=== PATIENT | female | born 1995 ===

== ENCOUNTER 2020-01-20 09:17 | Inpatient (IN) | payer BC ==
[2020-01-20] MEDS ORDERED: Tranexamic Acid 1,000 MG in Sodium Chloride 0.9% 100 ML IV PRN ×2 (10:52→17:21)
[2020-01-20] MEDS ORDERED: Water For Irrigation,Sterile 1,000 ML Container IRR PRN (10:52)
[2020-01-20] MEDS ORDERED: Misoprostol 200 MCG Tab PO PRN (10:52)
[2020-01-20] MEDS ORDERED: Carboprost Tromethamine 250 MCG/1 ML Amp IM PRN (10:52)
[2020-01-20] MEDS ORDERED: Sodium Chloride 0.9% 10 ML Syringe FLUSH PRN ×3 (10:52→17:21)
[2020-01-20] MEDS ORDERED: Sodium Chloride 0.9% 2.5 ML Syringe FLUSH PRN ×3 (10:52→17:21)
[2020-01-20] MEDS ORDERED: Methylergonovine 0.2 MG/1 ML Amp IM PRN ×2 (10:52→17:21)
[2020-01-20] MEDS ORDERED: Sodium Chloride 0.9% 10 ML SDV IV PRN ×2 (10:52→16:05)
[2020-01-20] MEDS ORDERED: Ondansetron 4 MG/2 ML SDV IVPUSH PRN ×2 (10:52→17:21)
[2020-01-20] MEDS ORDERED: Butorphanol 1 MG/ML SDV IVPUSH PRN (10:52)
[2020-01-20] MEDS ORDERED: Lidocaine 1% 50 ML MDV INJECT PRN (10:52)
[2020-01-20] MEDS ORDERED: Nalbuphine 10 MG/1 ML Vial IVPUSH PRN (10:52)
[2020-01-20] MEDS ORDERED: Oxytocin/0.9 % Sodium Chloride 30 UNIT/500 ML BAG IV SCH ×3 (11:00→16:15)
[2020-01-20 12:00] LABS: BLOOD UREA NITROGEN,BUN 8 mg/dL (7.0-18.0); CARBON DIOXIDE,CO2 23.7 mmol/L (21.0-32.0); CHLORIDE,CL 103 mmol/L (98-107); GLUCOSE RANDOM 78 mg/dL (74-106); POTASSIUM,K 3.1 mmol/L (3.5-5.1); SODIUM,NA 138 mmol/L (136-145)
[2020-01-20] MEDS: Lactated Ringers 1,000 ML IV SCH ×2 (14:26→15:04)
[2020-01-20] MEDS ORDERED: Bupivicaine/fentaNYL/NS 250 ML ONE (14:57)
--- NOTE | 2020-01-20 15:35 | PCM.PREANE ---
Preanesthetic Assessment - Procedure Proposed Procedure: continuous labor epidural - Anesthesia/Transfusion/Family Hx Anesthesia History: No Prior Anesthesia Transfusion History: No Prior Transfusion(s) - Review of Systems General: No Symptoms Pulmonary: No Symptoms Cardiovascular: No Symptoms Gastrointestinal: No Symptoms Neurological: No Symptoms Other: Reports: None - Physical Assessment Height: 5 ft 2.5 in Weight: 79.379 kg ASA Class: 2 Mental Status: Alert & Oriented x3 Airway Class: Mallampati = 1 Dentition: Reports: Normal Dentition ROM/Head Extension: Full Lungs: Clear to Auscultation, Normal Respiratory Effort Cardiovascular: Regular Rate, Regular Rhythm - Lab Values: Laboratory Last Values WBC 20.49 K/uL (4.0-11.0) H 01/20/20 11:14 RBC 3.79 M/uL (4.30-5.90) L 01/20/20 11:14 Hgb 12.2 g/dL (12.0-16.0) 01/20/20 11:14 Hct 35.8 % (36.0-46.0) L 01/20/20 11:14 MCV 94.5 fL (80.0-98.0) 01/20/20 11:14 MCH 32.2 pg (27.0-32.0) H 01/20/20 11:14 MCHC 34.1 g/dL (31.0-37.0) 01/20/20 11:14 RDW Std Deviation 46.8 fl (28.0-62.0) 01/20/20 11:14 RDW Coeff of Prudencio 14 % (11.0-15.0) 01/20/20 11:14 Plt Count 196 K/uL (150-400) 01/20/20 11:14 MPV 11.80 fL (7.40-12.00) 01/20/20 11:14 Nucleated RBC % 0.0 /100WBC 01/20/20 11:14 Nucleated RBCs # 0 K/uL 01/20/20 11:14 Sodium 138 mmol/L (136-145) 01/20/20 11:14 Potassium 3.1 mmol/L (3.5-5.1) L 01/20/20 11:14 Chloride 103 mmol/L (98-107) 01/20/20 11:14 Carbon Dioxide 23.7 mmol/L (21.0-32.0) 01/20/20 11:14 BUN 8 mg/dL (7.0-18.0) 01/20/20 11:14 Creatinine 1.0 mg/dL (0.6-1.0) 01/20/20 11:14 Est Cr Clr Drug Dosing 71.39 mL/min 01/20/20 11:14 Estimated GFR (MDRD) > 60.0 ml/min 01/20/20 11:14 Glucose 78 mg/dL (74-106) 01/20/20 11:14 Calcium 8.5 mg/dL (8.5-10.1) 01/20/20 11:14 Total Bilirubin 0.2 mg/dL (0.2-1.0) 01/20/20 11:14 AST 20 IU/L (15-37) 01/20/20 11:14 ALT 21 IU/L (14-63) 01/20/20 11:14 Alkaline Phosphatase 154 U/L (46-116) H 01/20/20 11:14 Total Protein 6.6 g/dL (6.4-8.2) 01/20/20 11:14 Albumin 2.9 g/dL (3.4-5.0) L 01/20/20 11:14 Globulin 3.7 g/dL (2.6-4.0) 01/20/20 11:14 Albumin/Globulin Ratio 0.8 (0.9-1.6) L 01/20/20 11:14 Urine Color YELLOW 01/20/20 09:15 Urine Appearance CLEAR 01/20/20 09:15 Urine pH 7.0 (5.0-8.0) 01/20/20 09:15 Ur Specific Mineral 1.010 (1.001-1.035) 01/20/20 09:15 Urine Protein NEGATIVE mg/dL (NEGATIVE) 01/20/20 09:15 Urine Glucose (UA) NEGATIVE mg/dL (NEGATIVE) 01/20/20 09:15 Urine Ketones NEGATIVE mg/dL (NEGATIVE) 01/20/20 09:15 Urine Occult Blood NEGATIVE (NEGATIVE) 01/20/20 09:15 Urine Nitrite NEGATIVE (NEGATIVE) 01/20/20 09:15 Urine Bilirubin NEGATIVE (NEGATIVE) 01/20/20 09:15 Urine Urobilinogen 0.2 EU/dL (<2.0) 01/20/20 09:15 Ur Leukocyte Esterase NEGATIVE (NEGATIVE) 01/20/20 09:15 COVID-19 (ROGER) NEGATIVE (NEGATIVE) 01/20/20 11:16 Blood Type A POSITIVE 01/20/20 11:14 Antibody Screen NEGATIVE 01/20/20 11:14 - Allergies Allergies/Adverse Reactions: Allergies Allergy/AdvReac Type Severity Reaction Status Date / Time coffee (Coffea arabica) Allergy Nausea and Verified 01/20/20 09:43 Vomiting oral contraceptive pill Allergy Other Uncoded 01/20/20 09:43 - Acknowledgements Anesthesia Type Planned: Epidural Pt an Appropriate Candidate for the Planned Anesthesia: Yes Alternatives and Risks of Anesthesia Discussed w Pt/Guardian: Yes Pt/Guardian Understands and Agrees with Anesthesia Plan: Yes PreAnesthesia Questionnaire HEENT History: Reports: Impaired Vision Cardiovascular History: Reports: None Respiratory History: Reports: None Gastrointestinal History: Reports: None Genitourinary History: Reports: None 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: Musculoskeletal History: Reports: Other (See Below) Other Musculoskeletal History: Marfan syndrome; fracture of big toe Neurological History: Reports: None Psychiatric History: Reports: Anxiety, Depression Endocrine/Metabolic History: Reports: None Hematologic History: Reports: None Immunologic History: Reports: None Dermatologic History: Reports: None - Infectious Disease History Infectious Disease History: Reports: None - Past Surgical History HEENT Surgical History: Reports: Oral Surgery, Tonsillectomy Musculoskeletal Surgical History: Reports: None - SUBSTANCE USE Tobacco Use Within Last Twelve Months: Cigarettes Recreational Drug Use History: No - CURRENT (IN HOUSE) MEDS Current Meds: Current Medications Butorphanol Tartrate (Stadol) 1 mg IVPUSH Q1H PRN PRN Reason: Pain Last Admin: 01/20/20 11:59 Dose: 1 mg Documented by: Carboprost Tromethamine (Hemabate Ds) 250 mcg IM ASDIRECTED PRN PRN Reason: Post Hemorrhage Lactated Ringer's (Ringers, Lactated) 1,000 mls @ 150 mls/hr IV ASDIRECTED FORTINO Last Admin: 01/20/20 15:04 Dose: 999 mls/hr Documented by: Oxytocin/Sodium Chloride (Oxytocin 30 Unit/500 Ml-Ns) 30 unit in 500 mls @ 999 mls/hr IV TITRATE FORTINO Tranexamic Acid 1,000 mg/ (Sodium Chloride) 110 mls @ 660 mls/hr IV ONETIME PRN PRN Reason: Bleeding Oxytocin/Sodium Chloride (Oxytocin 30 Unit/500 Ml-Ns) 30 unit in 500 mls @ 2 mls/hr IV TITRATE FORTINO; Protocol Lidocaine HCl (Xylocaine 1%) 50 ml INJECT ONETIME PRN PRN Reason: Laceration repair Methylergonovine Maleate (Methergine) 0.2 mg IM ASDIRECTED PRN PRN Reason: Post Hemorrhage Misoprostol (Cytotec) 200 mcg PO ONETIME PRN PRN Reason: Post Hemorrhage Nalbuphine HCl (Nubain) 10 mg IVPUSH Q1H PRN PRN Reason: Pain (severe 7-10) Ondansetron HCl (Zofran) 4 mg IVPUSH Q6H PRN PRN Reason: Nausea/Vomiting Last Admin: 01/20/20 11:55 Dose: 4 mg Documented by: Sodium Chloride (Saline Flush) 10 ml FLUSH ASDIRECTED PRN PRN Reason: Keep Vein Open Sodium Chloride (Saline Flush) 2.5 ml FLUSH ASDIRECTED PRN PRN Reason: Keep Vein Open Sodium Chloride (Normal Saline) 10 ml IV ASDIRECTED PRN PRN Reason: IV Use Sterile Water (Sterile Water For Irrigation) 1,000 ml IRR ASDIRECTED PRN PRN Reason: delivery Discontinued Medications Fentanyl/Bupivacaine HCl (Fentanyl/Bupivacaine/Ns 2 Mcg-0.125% 250 Ml) Confirm Administered Dose 250 mls @ as directed .ROUTE .[facility] ONE Stop: 01/20/20 14:58
[2020-01-20] MEDS ORDERED: Morphine PF 10 MG/10 ML SDV ONE (16:05)
[2020-01-20] MEDS ORDERED: ceFAZolin 2 GM in Premix Bag 1 BAG IV ONE (16:05)
[2020-01-20] MEDS ORDERED: Ondansetron 4 MG/2 ML SDV ONE (16:13)
[2020-01-20] MEDS ORDERED: Oxytocin 10 Units/1 ML SDV ONE (16:13)
[2020-01-20] MEDS ORDERED: Lactated Ringers 1,000 ML IV SCH ×2 (16:15→17:30)
[2020-01-20] MEDS ORDERED: fentaNYL 100 MCG/2 ML SDV IVPUSH PRN (16:48)
[2020-01-20] MEDS ORDERED: Acetaminophen/oxyCODONE 325-5 MG Tab PO PRN (16:48)
[2020-01-20] MEDS ORDERED: Octyl 2-Cyanoacrylate 1 Tube ONE (17:19)
[2020-01-20] MEDS ORDERED: Oxytocin 10 Units/1 ML SDV IM PRN (17:21)
[2020-01-20] MEDS ORDERED: Lanolin 100% Cream 7 GM Tube TOP PRN (17:21)
[2020-01-20] MEDS ORDERED: Bisacodyl 10 MG Supp RECTAL PRN (17:21)
[2020-01-20] MEDS ORDERED: Misoprostol 200 MCG Tab RECTAL PRN (17:21)
[2020-01-20] MEDS ORDERED: diphenhydrAMINE 50 MG/ML SDV IVPUSH PRN (17:21)
[2020-01-20] MEDS ORDERED: Ibuprofen 800 MG Tab PO PRN (17:21)
[2020-01-20] MEDS ORDERED: Oxytocin/Lactated Ringers 30 UNIT/500 ML BAG IV SCH (17:30)
--- NOTE | 2020-01-20 17:32 | PCM.OPNOTE ---
- General Post-Op/Procedure Note Date of Surgery/Procedure: 01/20/20 Operative Procedure(s): Primary low-transverse section Findings: Live male infant in radha breech presentation, Apgars 8/9, weight 2700g. Normal-appearing uterus, ovaries, fallopian tubes. Pre Op Diagnosis: 24yo @ 39w2d. Labor. malpresentation. Gestational hypertension Post-Op Diagnosis: 24yo @ 39w2d. Labor. malpresentation. Gestational hypertension Anesthesia Technique: Epidural Primary Surgeon: Kimber Lazo Anesthesia Provider: Daniel Christensen [employer] Impregnating Range Tender: Igor Delcid Pathology: Placenta to pathology Cord blood Fluid Replacement, Intraop: 900 Output, Urine Amount: 500 EBL in mLs: 150 Complications: None Condition: Good Free Text/Narrative:: Ancef prophylaxis
[2020-01-20] MEDS: Ketorolac 30 MG/ML SDV IVPUSH SCH (18:09)
--- NOTE | 2020-01-20 18:13 | PCM.POSTAN ---
POST ANESTHESIA ASSESSMENT - MENTAL STATUS Mental Status: Alert, Oriented - VITAL SIGNS Vital Signs: HR-63 Bp-110/67 SPo2-98% T- 98.1 RR-20 - RESPIRATORY Respiratory Status: Respiratory Rate WNL, Airway Patent, O2 Saturation Stable - CARDIOVASCULAR CV Status: Pulse Rate WNL, Blood Pressure Stable - GASTROINTESTINAL GI Status: No Symptoms - PAIN Pain Score: 1 - POST OP HYDRATION Hydration Status: Adequate & Stable - OBSERVATIONS Free Text/Narrative:: epidural block slowly receding down to T-8
--- NOTE | 2020-01-20 19:03 | OR ---
SURGEON: Kimber Lazo MD DATE OF PROCEDURE: 01/20/2020 PREOPERATIVE DIAGNOSES: 1. A 24-year-old, G1, P0, at 39 weeks and 2 days' gestation. 2. Labor. 3. malpresentation. 4. Gestational hypertension. POSTOPERATIVE DIAGNOSES: 1. A 24-year-old, G1, P0, at 39 weeks and 2 days' gestation. 2. Labor. 3. malpresentation. 4. Gestational hypertension. PROCEDURE: Primary low transverse section via Pfannenstiel. PRIMARY SURGEON: Kimber Lazo MD MANAGER THERAPY: Garrison Carrasco, medical student. ANESTHESIA: Epidural by Dr. Daniel Christensen. FINDINGS: Live male in radha breech presentation. score of 8 and 9 at one and five minutes respectively. Weight 2700 g. Normal-appearing uterus, ovaries, and tubes. ANTIBIOTIC PROPHYLAXIS: Ancef 2 g. IV FLUIDS: 900 mL of LR. ESTIMATED BLOOD LOSS: 500 mL. URINE OUTPUT: 150 mL. INDICATIONS: This is a 24-year-old, G1, P0, who presented at 39 weeks and 2 days' gestation complaining of contractions. Upon presentation, her cervix was found to be 3 cm dilated. She was admitted in latent labor with plan for augmentation as necessary. She spontaneously progressed to 4 to 5 cm dilated. She received an epidural for pain control. At this time, she underwent artificial rupture of membranes with minimal fluid noted. On this exam, the presenting part palpated abnormally and ultrasound was obtained to confirm breech presentation. Decision was then made to proceed with primary section for malpresentation and labor. The risks and benefits of this procedure were discussed with the patient. She agreed to proceed. DESCRIPTION OF PROCEDURE: The patient was taken to the operating room where her epidural was bolused. She was prepared and draped in the normal sterile fashion. A Pfannenstiel skin incision was made with a scalpel and carried through to the underlying layer of fascia with the Bovie. The fascia was incised in the midline and the incision extended laterally with curved Bautista scissors. The superior aspect of the fascial incision was grasped with Aziza clamps, elevated, and underlying rectus muscles dissected off bluntly and with the Bovie. In a similar fashion, the inferior aspect of the fascial incision was grasped with Aziza clamps, elevated, and underlying rectus muscles dissected off bluntly and with curved Bautista scissors. The peritoneum was identified in the midline and entered bluntly with a digit. The peritoneal incision was extended using manual traction. A large Jaime retractor was placed. Bladder flap was created in the usual manner. A low transverse hysterotomy was created with the scalpel. The hysterotomy was extended using manual traction. The 's buttocks were noted at the incision and was brought through the hysterotomy. The 's buttocks were wrapped with a moist blue towel and continued traction on the hip bones was performed until delivery of the bilateral legs. The was rotated and the left arm swept with a finger and delivered atraumatically. The infant was rotated 180 degrees and the right arm swept with a finger and delivered atraumatically. The head was flexed, and with light fundal pressure, the head was delivered. After approximately 30 seconds, the cord was clamped and cut. The was handed off to the awaiting emergency management director, nurse, and respiratory therapist. Cord blood was obtained. The placenta then delivered with uterine massage and gentle traction on the cord. The uterus was cleared of all clots and debris. The uterine incision was repaired with a running lock stitch of 0 Vicryl suture. A second stitch of the same suture was used to obtain hemostasis. The uterus was returned to the abdomen. The Jaime retractor was removed. The gutters were cleared of all clots. The hysterotomy was inspected and noted to be hemostatic. The fascia was closed with a running stitch of 0 Vicryl suture. The skin was closed with 4-0 Monocryl in subcuticular manner. All sponge, lap, needle counts were correct x2. The patient and infant tolerated the delivery well. [id number] / ALEJANDRO /[id number] CECE
[2020-01-20] MEDS: Nalbuphine 10 MG/1 ML Vial IVPUSH PRN (20:13)
[2020-01-21] MEDS: Ketorolac 30 MG/ML SDV IVPUSH SCH ×4 (00:09→18:26)
[2020-01-21] MEDS: Nalbuphine 10 MG/1 ML Vial IVPUSH PRN (02:27)
--- NOTE | 2020-01-21 07:17 | PCM48HPAN ---
Post Anesthesia Note - EVALUATION WITHIN 48HRS OF ANESTHETIC Vital Signs in Normal Range: Yes Patient Participated in Evaluation: Yes Respiratory Function Stable: Yes Airway Patent: Yes Cardiovascular Function Stable: Yes Hydration Status Stable: Yes Pain Control Satisfactory: Yes Nausea and Vomiting Control Satisfactory: Yes Mental Status Recovered: Yes Vital Signs: Last Vital Signs Temp 36.1 C 01/21/20 04:00 Pulse 72 01/21/20 04:00 Resp 16 01/21/20 06:00 BP 116/71 01/21/20 04:00 Pulse Ox 97 01/21/20 06:00
--- NOTE | 2020-01-21 08:09 | PCM.PNPP ---
- General Info Date of Service: 01/21/20 Subjective Update: Voiding spontaneously. Denies dizziness with ambulation. Functional Status: Reports: Pain Controlled, Tolerating Diet, Ambulating, Urinating - Review of Systems General: Reports: No Symptoms HEENT: Reports: No Symptoms Pulmonary: Reports: No Symptoms Cardiovascular: Reports: No Symptoms Gastrointestinal: Reports: No Symptoms Genitourinary: Reports: No Symptoms Musculoskeletal: Reports: No Symptoms Skin: Reports: No Symptoms Neurological: Reports: No Symptoms Psychiatric: Reports: No Symptoms - Patient Data Vital Signs - Most Recent: Last Vital Signs Temp 36.3 C 01/21/20 07:00 Pulse 78 01/21/20 07:00 Resp 20 01/21/20 07:00 BP 112/75 01/21/20 07:00 Pulse Ox 97 01/21/20 07:00 Weight - Most Recent: 79.379 kg I&O - Last 24 Hours: Intake & Output 01/20/20 01/21/20 01/21/20 22:59 06:59 14:59 Intake Total 900 Output Total 500 700 Balance 400 -700 Lab Results - Last 24 Hours: Laboratory Results - last 24 hr 01/20/20 01/20/20 01/20/20 Range/Units 09:15 11:14 11:14 WBC 20.49 H (4.0-11.0) K/uL RBC 3.79 L (4.30-5.90) M/uL Hgb 12.2 (12.0-16.0) g/dL Hct 35.8 L (36.0-46.0) % MCV 94.5 (80.0-98.0) fL MCH 32.2 H (27.0-32.0) pg MCHC 34.1 (31.0-37.0) g/dL RDW Std Deviation 46.8 (28.0-62.0) fl RDW Coeff of Prudencio 14 (11.0-15.0) % Plt Count 196 (150-400) K/uL MPV 11.80 (7.40-12.00) fL Nucleated RBC % 0.0 /100WBC Nucleated RBCs # 0 K/uL Sodium 138 (136-145) mmol/L Potassium 3.1 L (3.5-5.1) mmol/L Chloride 103 (98-107) mmol/L Carbon Dioxide 23.7 (21.0-32.0) mmol/L BUN 8 (7.0-18.0) mg/dL Creatinine 1.0 (0.6-1.0) mg/dL Est Cr Clr Drug Dosing 71.39 mL/min Estimated GFR (MDRD) > 60.0 ml/min Glucose 78 (74-106) mg/dL Calcium 8.5 (8.5-10.1) mg/dL Total Bilirubin 0.2 (0.2-1.0) mg/dL AST 20 (15-37) IU/L ALT 21 (14-63) IU/L Alkaline Phosphatase 154 H (46-116) U/L Total Protein 6.6 (6.4-8.2) g/dL Albumin 2.9 L (3.4-5.0) g/dL Globulin 3.7 (2.6-4.0) g/dL Albumin/Globulin Ratio 0.8 L (0.9-1.6) Urine Color YELLOW Urine Appearance CLEAR Urine pH 7.0 (5.0-8.0) Ur Specific Her[place] 1.010 (1.001-1.035) Urine Protein NEGATIVE (NEGATIVE) mg/dL Urine Glucose (UA) NEGATIVE (NEGATIVE) mg/dL Urine Ketones NEGATIVE (NEGATIVE) mg/dL Urine Occult Blood NEGATIVE (NEGATIVE) Urine Nitrite NEGATIVE (NEGATIVE) Urine Bilirubin NEGATIVE (NEGATIVE) Urine Urobilinogen 0.2 (<2.0) EU/dL Ur Leukocyte Esterase NEGATIVE (NEGATIVE) COVID-19 ([facility]) (NEGATIVE) Blood Type Antibody Screen 01/20/20 01/20/20 01/21/20 Range/Units 11:14 11:16 05:35 WBC (4.0-11.0) K/uL RBC (4.30-5.90) M/uL Hgb 9.9 L (12.0-16.0) g/dL Hct 29.4 L (36.0-46.0) % MCV (80.0-98.0) fL MCH (27.0-32.0) pg MCHC (31.0-37.0) g/dL RDW Std Deviation (28.0-62.0) fl RDW Coeff of Prudencio (11.0-15.0) % Plt Count (150-400) K/uL MPV (7.40-12.00) fL Nucleated RBC % /100WBC Nucleated RBCs # K/uL Sodium (136-145) mmol/L Potassium (3.5-5.1) mmol/L Chloride (98-107) mmol/L Carbon Dioxide (21.0-32.0) mmol/L BUN (7.0-18.0) mg/dL Creatinine (0.6-1.0) mg/dL Est Cr Clr Drug Dosing mL/min Estimated GFR (MDRD) ml/min Glucose (74-106) mg/dL Calcium (8.5-10.1) mg/dL Total Bilirubin (0.2-1.0) mg/dL AST (15-37) IU/L ALT (14-63) IU/L Alkaline Phosphatase (46-116) U/L Total Protein (6.4-8.2) g/dL Albumin (3.4-5.0) g/dL Globulin (2.6-4.0) g/dL Albumin/Globulin Ratio (0.9-1.6) Urine Color Urine Appearance Urine pH (5.0-8.0) Ur Specific Herlong (1.001-1.035) Urine Protein (NEGATIVE) mg/dL Urine Glucose (UA) (NEGATIVE) mg/dL Urine Ketones (NEGATIVE) mg/dL Urine Occult Blood (NEGATIVE) Urine Nitrite (NEGATIVE) Urine Bilirubin (NEGATIVE) Urine Urobilinogen (<2.0) EU/dL Ur Leukocyte Esterase (NEGATIVE) COVID-19 ([facility]) NEGATIVE (NEGATIVE) Blood Type A POSITIVE Antibody Screen NEGATIVE Med Orders - Current: Current Medications Bisacodyl (Dulcolax) 10 mg RECTAL ONETIME PRN PRN Reason: Constipation Butorphanol Tartrate (Stadol) 1 mg IVPUSH Q1H PRN PRN Reason: Pain Last Admin: 01/20/20 11:59 Dose: 1 mg Documented by: Carboprost Tromethamine (Hemabate Ds) 250 mcg IM ASDIRECTED PRN PRN Reason: Post Hemorrhage Diphenhydramine HCl (Benadryl) 25 mg IVPUSH Q6H PRN PRN Reason: Itching or Nausea Docusate Sodium (Colace) 100 mg PO BID [facility]TINO Emollient Ointment (Lansinoh Hpa) 0 gm TOP ASDIRECTED PRN PRN Reason: Sore Nipples Fentanyl (Sublimaze) 50 mcg IVPUSH Q5M PRN PRN Reason: Pain (severe 7-10) Stop: 01/21/20 16:49 Lactated Ringer's (Ringers, Lactated) 1,000 mls @ 150 mls/hr IV ASDIRECTED [facility] Last Admin: 01/20/20 15:04 Dose: 999 mls/hr Documented by: Oxytocin/Sodium Chloride (Oxytocin 30 Unit/500 Ml-Ns) 30 unit in 500 mls @ 999 mls/hr IV TITRATE [facility] Tranexamic Acid 1,000 mg/ (Sodium Chloride) 110 mls @ 660 mls/hr IV ONETIME PRN PRN Reason: Bleeding Oxytocin/Sodium Chloride (Oxytocin 30 Unit/500 Ml-Ns) 30 unit in 500 mls @ 2 mls/hr IV TITRATE [facility]; Protocol Lactated Ringer's (Ringers, Lactated) 1,000 mls @ 500 mls/hr IV BOLUS FORTINO Oxytocin/Sodium Chloride (Oxytocin 30 Unit/500 Ml-Ns) 30 unit in 500 mls @ 250 mls/hr IV TITRATE [facility] Lactated Ringer's (Ringers, Lactated) 1,000 mls @ 125 mls/hr IV ASDIRECTED [facility] Last Admin: 01/20/20 19:30 Dose: 125 mls/hr Documented by: Oxytocin/Lactated Ringer's (Pitocin In Lr 30 Units/500 Ml) 30 unit in 500 mls @ 999 mls/hr IV TITRATE [facility]; Protocol Tranexamic Acid 1,000 mg/ (Sodium Chloride) 110 mls @ 660 mls/hr IV ONETIME PRN PRN Reason: Bleeding Ibuprofen (Motrin) 800 mg PO Q8H PRN PRN Reason: mild pain or fever Ketorolac Tromethamine (Toradol) 30 mg IVPUSH Q6H [facility] Stop: 01/21/20 17:31 Last Admin: 01/21/20 06:21 Dose: 30 mg Documented by: Lidocaine HCl (Xylocaine 1%) 50 ml INJECT ONETIME PRN PRN Reason: Laceration repair Methylergonovine Maleate (Methergine) 0.2 mg IM ASDIRECTED PRN PRN Reason: Post Hemorrhage Methylergonovine Maleate (Methergine) 0.2 mg IM ONETIME PRN PRN Reason: Excessive Vaginal Bleeding Misoprostol (Cytotec) 200 mcg PO ONETIME PRN PRN Reason: Post Hemorrhage Misoprostol (Cytotec) 1,000 mcg RECTAL ONETIME PRN PRN Reason: excessive bleeding Nalbuphine HCl (Nubain) 10 mg IVPUSH Q1H PRN PRN Reason: Pain (severe 7-10) Nalbuphine HCl (Nubain) 2.5 mg IVPUSH Q3H PRN PRN Reason: Pruritis Stop: 01/21/20 16:49 Last Admin: 01/21/20 02:27 Dose: 2.5 mg Documented by: Ondansetron HCl (Zofran) 4 mg IVPUSH Q6H PRN PRN Reason: Nausea/Vomiting Last Admin: 01/20/20 11:55 Dose: 4 mg Documented by: Ondansetron HCl (Zofran) 4 mg IVPUSH Q4H PRN PRN Reason: Nausea/Vomiting Oxycodone/Acetaminophen (Percocet 325-5 Mg) 1 tab PO ONETIME PRN PRN Reason: Pain (moderate 4-6) Oxycodone/Acetaminophen (Percocet 325-5 Mg) 1 tab PO Q4H PRN PRN Reason: Pain (moderate 4-6) Oxycodone/Acetaminophen (Percocet 325-5 Mg) 2 tab PO Q4H PRN PRN Reason: Pain (moderate 4-6) Oxytocin (Pitocin) 10 unit IM ASDIRECTED PRN PRN Reason: Excessive Vaginal Bleeding Sodium Chloride (Saline Flush) 10 ml FLUSH ASDIRECTED PRN PRN Reason: Keep Vein Open Sodium Chloride (Saline Flush) 2.5 ml FLUSH ASDIRECTED PRN PRN Reason: Keep Vein Open Sodium Chloride (Normal Saline) 10 ml IV ASDIRECTED PRN PRN Reason: IV Use Sodium Chloride (Saline Flush) 10 ml FLUSH ASDIRECTED PRN PRN Reason: Keep Vein Open Sodium Chloride (Saline Flush) 2.5 ml FLUSH ASDIRECTED PRN PRN Reason: Keep Vein Open Sodium Chloride (Normal Saline) 10 ml IV ASDIRECTED PRN PRN Reason: IV Use Sodium Chloride (Saline Flush) 10 ml FLUSH ASDIRECTED PRN PRN Reason: Keep Vein Open Sodium Chloride (Saline Flush) 2.5 ml FLUSH ASDIRECTED PRN PRN Reason: Keep Vein Open Sterile Water (Sterile Water For Irrigation) 1,000 ml IRR ASDIRECTED PRN PRN Reason: delivery Discontinued Medications Fentanyl/Bupivacaine HCl (Fentanyl/Bupivacaine/Ns 2 Mcg-0.125% 250 Ml) Confirm Administered Dose 250 mls @ as directed .ROUTE .STK-MED ONE Stop: 01/20/20 14:58 Last Admin: 01/20/20 18:36 Dose: Not Given Documented by: Cefazolin Sodium/Dextrose 2 gm (/ Premix) 50 mls @ 100 mls/hr IV ONETIME ONE Stop: 01/20/20 16:34 Last Admin: 01/20/20 18:36 Dose: Not Given Documented by: Morphine Sulfate (Duramorph Pf) Confirm Administered Dose 10 mg .ROUTE .STK-MED ONE Stop: 01/20/20 16:06 Octyl Cyanoacrylate (Dermabond Advance) Confirm Administered Dose 1 applic .ROUTE .STK-MED ONE Stop: 01/20/20 17:20 Ondansetron HCl (Zofran) Confirm Administered Dose 4 mg .ROUTE .STK-MED ONE Stop: 01/20/20 16:14 Oxytocin (Pitocin) Confirm Administered Dose 20 unit .ROUTE .STK-MED ONE Stop: 01/20/20 16:14 - Infant Interaction Infant Disposition, : [place] in Room with Family Infant Feeding: Attempted ; Nursed Fair/Poor Support Person: - Recovery Exam Fundal Tone: Firm Fundal Level: 1 Fingerbreadths Below Umbilicus Fundal Placement: Midline Lochia Amount: Scant Lochia Color: Rubra/Red Bladder Status: Voiding Urinary Elimination: Voided - Exam General: Alert, Oriented Neck: Supple Lungs: Clear to Auscultation, Normal Respiratory Effort Cardiovascular: Regular Rate, Regular Rhythm GI/Abdominal Exam: Soft, No Distention, Tender (appropriately tender to palpation) Extremities: No Pedal Edema Skin: Warm, Dry, Intact Wound/Incisions: Dressing Dry and Intact Neurological: No New Focal Deficit Psy/Mental Status: Alert, Normal Affect, Normal Mood - Problem List & Annotations (1) S/P primary low transverse SNOMED Code(s): 576302532, [id number], [id number], [id number], [id number] Code(s): Z98.891 - HISTORY OF UTERINE SCAR FROM PREVIOUS SURGERY Status: Acute Current Visit: Yes - Problem List Review Problem List Initiated/Reviewed/Updated: Yes - My Orders Last 24 Hours: My Active Orders 01/20/20 09:44 Resuscitation Status Routine 01/20/20 10:52 Butorphanol [Stadol] 1 mg IVPUSH Q1H PRN Carboprost Tromethamine [Hemabate DS] 250 mcg IM ASDIRECTED PRN Lidocaine 1% [Xylocaine 1%] 50 ml INJECT ONETIME PRN Methylergonovine [Methergine] 0.2 mg IM ASDIRECTED PRN Nalbuphine [Nubain] 10 mg IVPUSH Q1H PRN Ondansetron [Zofran] 4 mg IVPUSH Q6H PRN Sodium Chloride 0.9% [Normal Saline] 10 ml IV ASDIRECTED PRN Sodium Chloride 0.9% [Saline Flush] 10 ml FLUSH ASDIRECTED PRN Sodium Chloride 0.9% [Saline Flush] 2.5 ml FLUSH ASDIRECTED PRN Tranexamic Acid [Cyklokapron] 1,000 mg Sodium Chloride 0.9% [Normal Saline] 100 ml IV ONETIME Water For Irrigation,Sterile [Sterile Water for Irrigation] 1,000 ml IRR ASDIRECTED PRN miSOPROStoL [Cytotec] 200 mcg PO ONETIME PRN Scalp Electrode [WOMSER] Per Unit Routine Peripheral IV Insertion Adult [OM.PC] Routine 01/20/20 11:00 Lactated Ringers [Ringers, Lactated] 1,000 ml IV ASDIRECTED Oxytocin/0.9 % Sodium Chloride [Oxytocin 30 Unit/500 ML-NS] 30 unit in 500 ml IV TITRATE 01/20/20 11:14 RPR (SYPHILIS SERO) W/ RFLX [REF] Routine 01/20/20 13:30 Oxytocin/0.9 % Sodium Chloride [Oxytocin 30 Unit/500 ML-NS] 30 unit in 500 ml IV TITRATE 01/20/20 Dinner Regular Diet [DIET] 01/20/20 16:05 Sodium Chloride 0.9% [Normal Saline] 10 ml IV ASDIRECTED PRN Sodium Chloride 0.9% [Saline Flush] 10 ml FLUSH ASDIRECTED PRN Sodium Chloride 0.9% [Saline Flush] 2.5 ml FLUSH ASDIRECTED PRN 01/20/20 16:08 Patient Status [ADT] Routine Verify Patient Consent Obtain [RC] ASDIRECTED Peripheral IV Insertion Adult [OM.PC] Routine Schedule Procedure [COMM] Per Unit Routine 01/20/20 16:09 Notify Provider Vital Signs [RC] PRN 01/20/20 16:15 Lactated Ringers [Ringers, Lactated] 1,000 ml IV BOLUS Oxytocin/0.9 % Sodium Chloride [Oxytocin 30 Unit/500 ML-NS] 30 unit in 500 ml IV TITRATE 01/20/20 17:21 Patient Status [ADT] Routine Ambulate [RC] PER UNIT ROUTINE Communication Order [RC] PER UNIT ROUTINE Communication Order [RC] Per Unit Routine Intake and Output [RC] Q8H May Shower [RC] ASDIRECTED Notify Provider Intake and Out [RC] ASDIRECTED Notify Provider Vital Signs [RC] ASDIRECTED RT Incentive Spirometry [RC] Q2HWA Urinary Catheter Removal [RC] PER UNIT ROUTINE Vital Signs [RC] PER UNIT ROUTINE Acetaminophen/oxyCODONE [Percocet 325-5 MG] 1 tab PO Q4H PRN Acetaminophen/oxyCODONE [Percocet 325-5 MG] 2 tab PO Q4H PRN Ibuprofen [Motrin] 800 mg PO Q8H PRN Lanolin [Lansinoh HPA] See Dose Instructions TOP ASDIRECTED PRN Methylergonovine [Methergine] 0.2 mg IM ONETIME PRN Ondansetron [Zofran] 4 mg IVPUSH Q4H PRN Oxytocin [Pitocin] 10 unit IM ASDIRECTED PRN Sodium Chloride 0.9% [Saline Flush] 10 ml FLUSH ASDIRECTED PRN Sodium Chloride 0.9% [Saline Flush] 2.5 ml FLUSH ASDIRECTED PRN Tranexamic Acid [Cyklokapron] 1,000 mg Sodium Chloride 0.9% [Normal Saline] 100 ml IV ONETIME bisacodyL [Dulcolax] 10 mg RECTAL ONETIME PRN diphenhydrAMINE [Benadryl] 25 mg IVPUSH Q6H PRN miSOPROStoL [Cytotec] 1,000 mcg RECTAL ONETIME PRN Abdominal Binder [OM.PC] Routine Assess Lochia [WOMSER] Per Unit Routine Assess Uterine Involution [WOMSER] Per Unit Routine Breast Pump [WOMSER] Per Unit Routine DVT/VTE Prophylaxis Reflex [OM.PC] Routine Heat Therapy [OM.PC] Routine Ice Therapy [OM.PC] Routine Saline Lock Insert [OM.PC] Routine Sequential Compression Device [OM.PC] Per Unit Routine 01/20/20 17:22 Antiembolic Devices [RC] PER UNIT ROUTINE Communication Order [RC] PER UNIT ROUTINE Peripheral IV Discontinue [OM.PC] Routine 01/20/20 17:24 Cooling Warming Measures [RC] ASDIRECTED 01/20/20 17:25 VTE/DVT Education [RC] PER UNIT ROUTINE 01/20/20 17:30 Ketorolac [Toradol] 30 mg IVPUSH Q6H Lactated Ringers [Ringers, Lactated] 1,000 ml IV ASDIRECTED Oxytocin/Lactated Ringers [Pitocin in LR 30 Units/500 ML] 30 unit in 500 ml IV TITRATE 01/20/20 21:00 Docusate Sodium [Colace] 100 mg PO BID 01/21/20 08:06 diphenhydrAMINE [Benadryl] 25 mg PO Q6H PRN - Assessment Assessment:: 24yo s/p 1LTCD at 39w2d for labor and malpresentation, POD#1 - Plan Plan:: 1. Routine postoperative care. 2. GHTN - BP normal since delivery, continue to monitor. 3. Dispo - Plan for discharge home on POD#2.
[2020-01-21] MEDS: Docusate Sodium 100 MG Cap PO SCH ×2 (09:53→21:50)
[2020-01-21] MEDS: diphenhydrAMINE 25 MG Cap PO PRN ×2 (10:26→21:50)
[2020-01-21] MEDS: Acetaminophen/oxyCODONE 325-5 MG Tab PO PRN (19:18)
[2020-01-22] MEDS: Acetaminophen/oxyCODONE 325-5 MG Tab PO PRN ×3 (03:56→12:10)
[2020-01-22] MEDS: Docusate Sodium 100 MG Cap PO SCH ×2 (08:28→08:44)
--- NOTE | 2020-01-22 09:43 | PCM.PNPP ---
- General Info Date of Service: 01/22/20 Functional Status: Reports: Pain Controlled, Tolerating Diet, Ambulating, Urinating - Review of Systems General: Reports: No Symptoms HEENT: Reports: No Symptoms Pulmonary: Reports: No Symptoms Cardiovascular: Reports: No Symptoms Gastrointestinal: Reports: No Symptoms Genitourinary: Reports: No Symptoms Musculoskeletal: Reports: No Symptoms Skin: Reports: No Symptoms Neurological: Reports: No Symptoms Psychiatric: Reports: No Symptoms - Patient Data Vital Signs - Most Recent: Last Vital Signs Temp 36.3 C 01/22/20 07:40 Pulse 64 01/22/20 07:40 Resp 16 01/22/20 07:40 BP 124/81 01/22/20 07:40 Pulse Ox 99 01/22/20 07:40 Weight - Most Recent: 175 lb Lab Results - Last 24 Hours: Laboratory Results - last 24 hr 01/20/20 Range/Units 11:14 RPR Non-Reac (Non-Reac) Med Orders - Current: Current Medications Bisacodyl (Dulcolax) 10 mg RECTAL ONETIME PRN PRN Reason: Constipation Butorphanol Tartrate (Stadol) 1 mg IVPUSH Q1H PRN PRN Reason: Pain Last Admin: 01/20/20 11:59 Dose: 1 mg Documented by: Carboprost Tromethamine (Hemabate Ds) 250 mcg IM ASDIRECTED PRN PRN Reason: Post Hemorrhage Diphenhydramine HCl (Benadryl) 25 mg IVPUSH Q6H PRN PRN Reason: Itching or Nausea Diphenhydramine HCl (Benadryl) 25 mg PO Q6H PRN PRN Reason: Sleep Last Admin: 01/21/20 21:50 Dose: 25 mg Documented by: Docusate Sodium (Colace) 100 mg PO BID FORTINO Last Admin: 01/22/20 08:44 Dose: 100 mg Documented by: Emollient Ointment (Lansinoh Hpa) 0 gm TOP ASDIRECTED PRN PRN Reason: Sore Nipples Lactated Ringer's (Ringers, Lactated) 1,000 mls @ 150 mls/hr IV ASDIRECTED [facility] Last Admin: 01/20/20 15:04 Dose: 999 mls/hr Documented by: Oxytocin/Sodium Chloride (Oxytocin 30 Unit/500 Ml-Ns) 30 unit in 500 mls @ 999 mls/hr IV TITRATE [facility] Tranexamic Acid 1,000 mg/ (Sodium Chloride) 110 mls @ 660 mls/hr IV ONETIME PRN PRN Reason: Bleeding Oxytocin/Sodium Chloride (Oxytocin 30 Unit/500 Ml-Ns) 30 unit in 500 mls @ 2 mls/hr IV TITRATE [facility]; Protocol Lactated Ringer's (Ringers, Lactated) 1,000 mls @ 500 mls/hr IV BOLUS FORTINO Oxytocin/Sodium Chloride (Oxytocin 30 Unit/500 Ml-Ns) 30 unit in 500 mls @ 250 mls/hr IV TITRATE [facility] Lactated Ringer's (Ringers, Lactated) 1,000 mls @ 125 mls/hr IV ASDIRECTED [facility] Last Admin: 01/20/20 19:30 Dose: 125 mls/hr Documented by: Oxytocin/Lactated Ringer's (Pitocin In Lr 30 Units/500 Ml) 30 unit in 500 mls @ 999 mls/hr IV TITRATE [facility]; Protocol Tranexamic Acid 1,000 mg/ (Sodium Chloride) 110 mls @ 660 mls/hr IV ONETIME PRN PRN Reason: Bleeding Ibuprofen (Motrin) 800 mg PO Q8H PRN PRN Reason: mild pain or fever Last Admin: 01/22/20 08:44 Dose: 800 mg Documented by: Lidocaine HCl (Xylocaine 1%) 50 ml INJECT ONETIME PRN PRN Reason: Laceration repair Methylergonovine Maleate (Methergine) 0.2 mg IM ASDIRECTED PRN PRN Reason: Post Hemorrhage Methylergonovine Maleate (Methergine) 0.2 mg IM ONETIME PRN PRN Reason: Excessive Vaginal Bleeding Misoprostol (Cytotec) 200 mcg PO ONETIME PRN PRN Reason: Post Hemorrhage Misoprostol (Cytotec) 1,000 mcg RECTAL ONETIME PRN PRN Reason: excessive bleeding Nalbuphine HCl (Nubain) 10 mg IVPUSH Q1H PRN PRN Reason: Pain (severe 7-10) Ondansetron HCl (Zofran) 4 mg IVPUSH Q6H PRN PRN Reason: Nausea/Vomiting Last Admin: 01/20/20 11:55 Dose: 4 mg Documented by: Ondansetron HCl (Zofran) 4 mg IVPUSH Q4H PRN PRN Reason: Nausea/Vomiting Oxycodone/Acetaminophen (Percocet 325-5 Mg) 1 tab PO ONETIME PRN PRN Reason: Pain (moderate 4-6) Oxycodone/Acetaminophen (Percocet 325-5 Mg) 1 tab PO Q4H PRN PRN Reason: Pain (moderate 4-6) Last Admin: 01/22/20 08:44 Dose: 1 tab Documented by: Oxycodone/Acetaminophen (Percocet 325-5 Mg) 2 tab PO Q4H PRN PRN Reason: Pain (moderate 4-6) Last Admin: 01/22/20 03:56 Dose: 2 tab Documented by: Oxytocin (Pitocin) 10 unit IM ASDIRECTED PRN PRN Reason: Excessive Vaginal Bleeding Sodium Chloride (Saline Flush) 10 ml FLUSH ASDIRECTED PRN PRN Reason: Keep Vein Open Sodium Chloride (Saline Flush) 2.5 ml FLUSH ASDIRECTED PRN PRN Reason: Keep Vein Open Sodium Chloride (Normal Saline) 10 ml IV ASDIRECTED PRN PRN Reason: IV Use Sodium Chloride (Saline Flush) 10 ml FLUSH ASDIRECTED PRN PRN Reason: Keep Vein Open Sodium Chloride (Saline Flush) 2.5 ml FLUSH ASDIRECTED PRN PRN Reason: Keep Vein Open Sodium Chloride (Normal Saline) 10 ml IV ASDIRECTED PRN PRN Reason: IV Use Sodium Chloride (Saline Flush) 10 ml FLUSH ASDIRECTED PRN PRN Reason: Keep Vein Open Sodium Chloride (Saline Flush) 2.5 ml FLUSH ASDIRECTED PRN PRN Reason: Keep Vein Open Sterile Water (Sterile Water For Irrigation) 1,000 ml IRR ASDIRECTED PRN PRN Reason: delivery Discontinued Medications Fentanyl (Sublimaze) 50 mcg IVPUSH Q5M PRN PRN Reason: Pain (severe 7-10) Stop: 01/21/20 16:49 Fentanyl/Bupivacaine HCl (Fentanyl/Bupivacaine/Ns 2 Mcg-0.125% 250 Ml) Confirm Administered Dose 250 mls @ as directed .ROUTE .STK-MED ONE Stop: 01/20/20 14:58 Last Admin: 01/20/20 18:36 Dose: Not Given Documented by: Cefazolin Sodium/Dextrose 2 gm (/ Premix) 50 mls @ 100 mls/hr IV ONETIME ONE Stop: 01/20/20 16:34 Last Admin: 01/20/20 18:36 Dose: Not Given Documented by: Ketorolac Tromethamine (Toradol) 30 mg IVPUSH Q6H [facility] Stop: 01/21/20 17:31 Last Admin: 01/21/20 18:26 Dose: 30 mg Documented by: Morphine Sulfate (Duramorph Pf) Confirm Administered Dose 10 mg .ROUTE .STK-MED ONE Stop: 01/20/20 16:06 Nalbuphine HCl (Nubain) 2.5 mg IVPUSH Q3H PRN PRN Reason: Pruritis Stop: 01/21/20 16:49 Last Admin: 01/21/20 02:27 Dose: 2.5 mg Documented by: Octyl Cyanoacrylate (Dermabond Advance) Confirm Administered Dose 1 applic .ROUTE .STK-MED ONE Stop: 01/20/20 17:20 Ondansetron HCl (Zofran) Confirm Administered Dose 4 mg .ROUTE .STK-MED ONE Stop: 01/20/20 16:14 Oxytocin (Pitocin) Confirm Administered Dose 20 unit .ROUTE .STK-MED ONE Stop: 01/20/20 16:14 - Infant Interaction Infant Disposition, : in Room with Family Infant Feeding: Attempted ; Nursed Fair/Poor Support Person: - Recovery Exam Fundal Tone: Firm Fundal Level: 2 Fingerbreadths Below Umbilicus Fundal Placement: Midline Lochia Amount: Scant Lochia Color: Rubra/Red Perineum Description: Intact, Minimal Bruising/Swelling Episiotomy/Laceration: None Bladder Status: Voiding Urinary Elimination: Voided - Exam General: Alert, Oriented, Cooperative, No Acute Distress HEENT: Pupils Equal, Pupils Reactive Neck: Supple, Trachea Midline, No JVD Lungs: Normal Respiratory Effort GI/Abdominal Exam: Soft, Non-Tender, No Organomegaly, No Distention Extremities: Normal Inspection, Normal Range of Motion, Non-Tender, No Pedal Edema Skin: Warm, Dry, Intact Wound/Incisions: Healing Well Neurological: No New Focal Deficit Psy/Mental Status: Alert, Normal Affect, Normal Mood - Problem List Review Problem List Initiated/Reviewed/Updated: Yes - My Orders Last 24 Hours: My Active Orders 01/22/20 09:36 Ready for Discharge [RC] PER UNIT ROUTINE - Assessment Assessment:: 24yo s/p 1LTCD at 39w2d for labor and malpresentation, POD#2 - Plan Plan:: 1. Routine postoperative care. 2. GHTN - BP normal since delivery, continue to monitor. 3. Bleeding light, Hgb 9.9, no s/s of anemia 4. well, continue PNV 4. Dispo - meeting all milestones, stable for discharge home. Reviewed care instruction.
== END 2020-01-22 15:05 | disposition home or self-care (01) | DRG 540 ==
LOC: MW.OBCHECK 09:17 → MW.OB 09:20 → MW.OBCHECK 10:51 → MW.OB 10:52 → OBSVTOIN 16:08 → MW.OB 22:00
PROVIDERS: ADMIT Obstetrics & Gynecology; ATTEND Obstetrics & Gynecology
PROC: 10D00Z1 Extraction of Products of Conception, Low, Open Approach (ICD-10-PCS; principal; 2020-01-20)
DX: O32.1XX0 Maternal care for breech presentation, not applicable or unspecified (principal); Z3A.39 39 weeks gestation of pregnancy; Z37.0 Single live birth; O13.4 Gestational [pregnancy-induced] hypertension without significant proteinuria, complicating childbirth; Z11.59 Encounter for screening for other viral diseases
CPT/HCPCS: 36415; 51702; 59025; 80053; 81003; 85014; 85018; 85027; 86592; 86850; 86900; 86901; A9270-GY; J0595; J1885; J2270; J2300; J2405; J2590; J3010; J7120; U0002